=== PATIENT | female | born 2000 | race Caucasian/White ===

== ENCOUNTER 2022-10-22 08:23 | Outpatient (CLI) | payer BC, MEDICAID ==
[2022-10-22 15:53] LABS: THYROID STIMULATING HORMONE 2.57 uIU/mL (0.34-5.60)
[2022-10-22 15:54] LABS: FREE T3 3.93 pg/mL (2.5-3.9)
[2022-10-22 15:55] LABS: FREE T4 (FREE THYROXINE) 0.81 ng/dL (0.58-1.64)
[2022-10-22 16:07] LABS: ALBUMIN 3.9 g/dL (3.2-5.5); ALKALINE PHOSPHATASE 51 IU/L (42-121); ALT ALANINE AMINOTRANSFERASE 11 IU/L (10-60); AST ASPARTATE AMINOTRANSFERASE 18 IU/L (10-42); BILIRUBIN,TOTAL 0.8 mg/dL (0.2-1.0); BUN - BLOOD UREA NITROGEN 11 mg/dL (6-20); CARBON DIOXIDE - CO2 22 mmol/L (21-32); CHLORIDE 106 mmol/L (101-111); CHOL/HDL RATIO 5.1 (<4.4); CHOLESTEROL 192 mg/dL; CREATININE 0.6 mg/dL (0.4-1.0); GFR - MDRD 127 (>89); GLUCOSE 84 mg/dL (70-100); HDL CHOLESTEROL 38 mg/dL; LDL CHOLESTEROL,CALCULATED 125 mg/dL; LDL/HDL RATIO 3.3 (<4.4); SODIUM 137 mmol/L (135-145); TOTAL PROTEIN 7.8 g/dL (6.7-8.2); TRIGLYCERIDES 144 mg/dL; VLDL CHOLESTEROL 29 mg/dL
[2022-10-22 20:40] LABS: ESTIMATED AVERAGE GLUCOSE 100 mg/dL (70-100); HEMOGLOBIN A1c% 5.1 % (4.27-6.07)
== END 2022-10-22 08:24 | disposition home or self-care (01) ==
LOC: LAB.S 08:23
PROVIDERS: ATTEND Pediatrics
DX: F90.0 Attention-deficit hyperactivity disorder, predominantly inattentive type (principal); E66.9 Obesity, unspecified
CPT/HCPCS: 36415; 80053; 80061; 83036; 83721; 84439; 84443; 84481

== ENCOUNTER 2023-05-17 13:51 | Outpatient (CLI) | payer BC, MEDICAID | END 2023-05-17 13:52 | disposition home or self-care (01) | LOC: LAB.S 13:51 | PROVIDERS: ATTEND Registered Nurse | DX: Z11.1 Encounter for screening for respiratory tuberculosis (principal) | CPT/HCPCS: 81599; 86480 ==

== ENCOUNTER 2024-01-15 14:54 | Outpatient (CLI) | payer BC, MEDICAID | END 2024-01-15 14:55 | disposition home or self-care (01) | LOC: LAB.S 14:54 | PROVIDERS: ATTEND Registered Nurse | DX: Z00.00 Encounter for general adult medical examination without abnormal findings (principal) | CPT/HCPCS: 81599 ==

== ENCOUNTER 2024-01-17 11:10 | Outpatient (CLI) | payer BC, MEDICAID | END 2024-01-17 11:11 | disposition home or self-care (01) | LOC: LAB 11:10 | PROVIDERS: ATTEND Registered Nurse | DX: Z00.00 Encounter for general adult medical examination without abnormal findings (principal) | CPT/HCPCS: 81599 ==